=== PATIENT | male | born 1965 | race African-American/Black ===

== ENCOUNTER 2016-06-25 12:46 | Inpatient (IN) | payer OTHER ==
[2016-06-25 16:34] VITALS: BMI 33.9
--- NOTE | 2016-06-25 16:46 | HP ---
CIWA Score - CIWA Score Nausea/Vomitin-Mild Nausea/No Vomiting Muscle Tremors: 3 Anxiety: 4-Mod. Anxious/Guarded Agitation: 4-Moderately Restless Paroxysmal Sweats: 1-Minimal Palms Moist Orientation: 1-Uncertain about Date Tacttile Disturbances: 0-None Auditory Disturbances: 3-Moderate Harsh/Frighten Visual Disturbances: 0-None Headache: 0-None Present CIWA-Ar Total Score: 17 Admission ROS S - HPI Chief Complaint: withdrawal sx Allergies/Adverse Reactions: Allergies Allergy/AdvReac Type Severity Reaction Status Date / Time No Known Allergies Allergy Verified 06/25/16 16:37 History of Present Illness: 51 years old male with long history of alcohol, cocaine, nicotine dependence, chronic pancretitis and schizophrenia, is admitted to detox Exam Limitations: No Limitations - Ebola screening Have you traveled outside of the country in the last 21 days: No Have you had contact with anyone from an Ebola affected area: No Have you been sick,other than usual withdrawal symptoms: No Do you have a fever: No - Review of Systems Constitutional: Chills, Changes in sleep, Weight Stable EENT: reports: No Symptoms Reported, Dental Problems (denture) Respiratory: reports: No Symptoms reported Cardiac: reports: No Symptoms Reported GI: reports: Constipated, Nausea, Poor Fluid Intake, Abdominal cramping : reports: No Symptoms Reported Musculoskeletal: reports: No Symptoms Reported Integumentary: reports: No Symptoms Reported Neuro: reports: Tremors Endocrine: reports: No Symptoms Reported Hematology: reports: No Symptoms Reported Psychiatric: reports: Judgement Intact, Depressed Other Systems: Reviewed and Negative Patient History - Patient Medical History Hx Anemia: No Hx Asthma: Yes Hx Cancer: No Hx Cardiac Disorders: No Hx Congestive Heart Failure: No Hx Hypertension: Yes Hx Hypercholesterolemia: Yes Hx Pacemaker: No HX Cerebrovascular Accident: No Hx Seizures: No Hx Dementia: No Hx Diabetes: No Hx Gastrointestinal Disorders: No Hx Liver Disease: No Hx Genitourinary Disorders: No Hx Sexually Transmitted Disorders: No Hx Renal Disease (ESRD): No Hx Thyroid Disease: No Hx Human Immunodeficiency Virus (HIV): No Hx Hepatitis C: No Hx Depression: No Hx Suicide Attempt: No Hx Bipolar Disorder: No Hx Schizophrenia: Yes (prolixin im q2w, next 06/23/16) - Patient Surgical History Past Surgical History: No - PPD History Previous Implant?: Yes Documented Results: Positive w/o proof Implanted On Prior [facility] Admission?: No PPD to be Administered?: No - Smoking Cessation Smoking history: Current every day smoker Have you smoked in the past 12 months: Yes Aproximately how many cigarettes per day: 4 Cigars Per Day: 0 Hx Chewing Tobacco Use: No Initiated information on smoking cessation: Yes 'Breaking Loose' booklet given: 06/25/16 - Substance & Tx. History Hx Alcohol Use: Yes Hx Substance Use: Yes Substance Use Type: Alcohol, Cocaine Hx Substance Use Treatment: Yes - Substances Abused alcohol Route: Oral Frequency: Daily Amount used: 16ozx6 pack beer Age of first use: 18 Date of Last Use: 06/24/16 Alprazolam (Xanax) Route: Oral Frequency: Daily Amount used: 16ozx6 pack beer Age of first use: 18 Date of Last Use: 06/24/16 Family Disease History - Family Disease History Family Disease History: Other: Father Admission Physical Exam [facility] - Vital Signs Vital Signs: Vital Signs - 24 hr 06/25/16 16:32 Temperature 98.0 F Pulse Rate 110 H Respiratory 20 Rate Blood Pressure 143/80 - Physical General Appearance: Yes: Nourished, Appropriately Dressed, Mild Distress, Tremorous, Irritable, Sweating, Anxious HEENTM: Yes: Hearing grossly Normal, Normal ENT Inspection, Normocephalic, Normal Voice Respiratory: Yes: Chest Non-Tender, Lungs Clear, Normal Breath Sounds, No Respiratory Distress, No Accessory Muscle Use Neck: Yes: Supple, Trachea in good position Breast: Yes: Breasts Symetrical Cardiology: Yes: Regular Rhythm, S1, S2, Tachycardia Abdominal: Yes: Non Tender, Soft Genitourinary: Yes: Within Normal Limits Back: Yes: Normal Inspection Musculoskeletal: Yes: full range of Motion, Gait Steady Extremities: Yes: Normal Inspection, Normal Range of Motion, Non-Tender, Tremors Neurological: Yes: Alert, Motor Strength 5/5, Normal Response, Depressed Affect Integumentary: Yes: Warm, Moist Lymphatic: Yes: Within Normal Limits - Diagnostic (1) Alcohol dependence with uncomplicated withdrawal Current Visit: Yes Status: Acute (2) Cocaine dependence, uncomplicated Current Visit: Yes Status: Chronic (3) Positive PPD, treated Current Visit: Yes Status: Resolved (4) Hypertension Current Visit: Yes Status: Acute Qualifiers: Hypertension type: essential hypertension Qualified Code(s): I10 - Essential (primary) hypertension (5) Hyperlipidemia Current Visit: Yes Status: Chronic Qualifiers: Hyperlipidemia type: pure hypercholesterolemia Qualified Code(s): E78.0 - Pure hypercholesterolemia (6) Asthma Current Visit: Yes Status: Acute Qualifiers: Asthma severity: mild intermittent Asthma complication type: with status asthmaticus Qualified Code(s): J45.22 - Mild intermittent asthma with status asthmaticus (7) Schizophrenia simplex Current Visit: Yes Status: Suspected Cleared for Admission [facility] - Detox or Rehab S Level of Care: Medically Managed Detox Regimen/Protocol: Librium S Breath Alcohol Content Breath Alcohol Content: 0 Urine Drug Screen - Results Drug Screen Negative: No Urine Drug Screen Results: GOPI-Cocaine
[2016-06-25] MEDS ORDERED: MAGNESIUM CITRATE 300 ML BOTTLE PO PRN (16:53)
[2016-06-25] MEDS ORDERED: ACETAMINOPHEN 325 MG TABLET (FP) PO PRN (16:53)
[2016-06-25] MEDS ORDERED: MAG HYDROX/AL HYDROX/SIMETH 30 ML UNIT-DOSE CUP PO PRN (16:53)
[2016-06-25] MEDS ORDERED: chlordiazePOXIDE HCL 25 MG CAPSULE PO PRN (16:53)
[2016-06-25] MEDS ORDERED: hydrOXYzine PAMOATE 50 MG CAPSULE (FP) PO PRN (16:53)
[2016-06-25] MEDS ORDERED: LOPERAMIDE HCL 2 MG CAPSULE PO PRN (16:53)
[2016-06-25] MEDS ORDERED: MENTHOL/PHENOL 1 EACH UD MM PRN (16:53)
[2016-06-25] MEDS ORDERED: P-EPHED 60MG/TRIPROLIDI 2.5MG TABLET PO PRN (16:53)
[2016-06-25] MEDS ORDERED: NICOTINE POLACRILEX 2 MG GUM BC PRN (16:53)
[2016-06-25] MEDS ORDERED: MAGNESIUM HYDROX 2400MG/30ML ORAL SUSPENSION 30 ML CUP PO PRN (16:53)
[2016-06-25] MEDS ORDERED: guaiFENesin/D-METHORPHAN HB 10 ML UNIT-DOSE CUPS PO PRN (16:53)
[2016-06-25] MEDS ORDERED: ALBUTEROL SO4 6.7 GM HFA INHALER IH PRN (17:02)
[2016-06-25] MEDS ORDERED: ALBUTEROL SO4 2.5/IPRATROPIUM 0.5 INH SOL 3 ML VIAL.NEB. NEB PRN (17:03)
[2016-06-25] MEDS: ATORVASTATIN CA 20 MG TABLET (FP) PO SCH (22:39)
[2016-06-25] MEDS: chlordiazePOXIDE HCL 25 MG CAPSULE PO SCH (22:39)
[2016-06-25] MEDS: THIAMINE HCL 100 MG TABLET (FP) PO SCH (22:39)
[2016-06-25] MEDS: PROPRANOLOL HCL 20 MG TABLET PO SCH (22:40)
[2016-06-25] MEDS: diphenhydrAMINE HCL 50 MG CAPSULE PO PRN (22:40)
[2016-06-26] MEDS: chlordiazePOXIDE HCL 25 MG CAPSULE PO SCH ×4 (05:43→22:31)
[2016-06-26] MEDS: PRENATAL VITAMINS W/ FOLIC ACID TABLET (FP) PO SCH (10:43)
[2016-06-26] MEDS: PROPRANOLOL HCL 20 MG TABLET PO SCH ×2 (10:43→22:32)
[2016-06-26] MEDS: ASPIRIN 81 MG CHEWABLE TABLETS PO SCH (10:43)
[2016-06-26] MEDS: NICOTINE 14 MG/24 HOURS TOPICAL PATCH TD SCH (10:44)
--- NOTE | 2016-06-26 11:05 | CONSULT ---
[facility] Psychiatric Consult - Data Date of interview: 06/26/16 Admission source: [facility] Identifying data: Admission to [facility] [place] for this 51 y/o AA male seeking detox treatment on for alcohol,cocaine (crack) and benzodiazepine (xanax) dependence.Patient is single without children,homeless,unemployed and supported on SSI benefits. Substance Abuse History: - Smoking Cessation. Smoking history: Current every day smoker. Have you smoked in the past 12 months: Yes. Aproximately how many cigarettes per day: 4. Cigars Per Day: 0. Hx Chewing Tobacco Use: No. Initiated information on smoking cessation: Yes. 'Breaking Loose' booklet given : 06/25/16. - Substance & Tx. History. Hx Alcohol Use: Yes. Hx Substance Use : Yes. Substance Use Type: Alcohol, Cocaine. Hx Substance Use Treatment: Yes. - Substances Abused. alcohol. Route: Oral. Frequency: Daily. Amount used: 16ozx6 pack beer. Age of first use: 18. Date of Last Use: 06/24/16. Alprazolam (Xanax). Route: Oral. Frequency: Daily. Amount used: 16ozx6 pack beer. Age of first use: 18. Date of Last Use: 06/24/16. Confirmed by patient in this interview. Medical History: Bronchial asthma and hypertension. Psychiatric History: Patient is a vague,irritable and evasive historian." I have no idea about the names of my medications." He reports history of multiple psychiatric hospitalizations.Diagnosed with paranoid schizophrenia.Mr Marshall denies history of suicide attempts.Review of pharmacy claims shows filled scripts for propanolol,citalopram and cogentin.Reconciliation list indicates prolixin decanoate 25 mg im Q 2 weeks (next dose on 06/24/16).Was it dispensed or not ?. Patient is unable to provide accurate information.He states that he gets psychiatric OPD services at the [facility] mental health clinic. Physical/Sexual Abuse/Trauma History: Patient denies. Additional Comment: Urine Drug Screen Results: GOPI-Cocaine.Noted. Mental Status Exam - Mental Status Exam Alert and Oriented to: Time, Place, Person Cognitive Function: Good Patient Appearance: Well Groomed Mood: Hostile, Irritable Affect: Mood Congruent Patient Behavior: Uncooperative Speech Pattern: Clear (but non-spontaneous) Voice Loudness: Normal Thought Process: Goal Oriented Thought Disorder: Bizarre Hallucinations: Denies Suicidal Ideation: Denies Homicidal Ideation: Denies Insight/Judgement: Poor Sleep: Well Appetite: Good Muscle strength/Tone: Normal Gait/Station: Normal Psychiatric Findings - Problem List (Alexander 1, 2,3) (1) Alcohol dependence with uncomplicated withdrawal Current Visit: Yes Status: Acute (2) Cocaine dependence, uncomplicated Current Visit: Yes Status: Acute (3) Nicotine dependence Current Visit: Yes Status: Acute (4) Schizophrenia Current Visit: Yes Status: Chronic (5) Asthma Current Visit: Yes Status: Chronic Qualifiers: Asthma severity: mild intermittent Asthma complication type: with status asthmaticus Qualified Code(s): J45.22 - Mild intermittent asthma with status asthmaticus (6) Hypertension Current Visit: Yes Status: Chronic Qualifiers: Hypertension type: essential hypertension Qualified Code(s): I10 - Essential (primary) hypertension (7) Hyperlipidemia Current Visit: Yes Status: Chronic Qualifiers: Hyperlipidemia type: pure hypercholesterolemia Qualified Code(s): E78.0 - Pure hypercholesterolemia - Initial Treatment Plan Initial Treatment Plan: Psychoeducation.Detoxification.Medications : cogentin 1 mg po bid + citalopram 10 mg po daily + prolixin 5 mg po hs.Side effects/ benefits of each drug are discussed with the patient.He agrees with this plan.Observation.Doses are based on data from pharmacy claims of 06/10/16 and 06/24 @ [facility]).
[2016-06-26 11:20] LABS: ALBUMIN 3.9 g/dl (3.4-5.0); ANION GAP 9 (8-16); CALCIUM 8.7 mg/dL (8.5-10.1); CO2 29 mmol/L (21-32); CREATININE 1.2 mg/dL (0.7-1.3); GLUCOSE,RANDOM 78 mg/dL (74-106); MCH 27.8 pg (25.7-33.7); MCHC 32.5 g/dl (32.0-35.9); MEAN CELL VOLUME 85.6 fl (80-96); PLATELET COUNT 268 K/MM3 (134-434); RDW 14.8 % (11.9-15.9); SGOT/AST 31 U/L (15-37); SGPT/ALT 39 U/L (12-78); WHITE BLOOD COUNT 6.9 K/mm3 (4.0-10.0)
[2016-06-26 11:21] LABS: ALK PHOS 96 U/L (45-117); BILIRUBIN,TOTAL 0.6 mg/dL (0.2-1.0); TOT PROT 6.9 g/dl (6.4-8.2)
--- NOTE | 2016-06-26 13:18 | PN ---
S CIWA - CIWA Score Nausea/Vomitin-No Nausea/No Vomiting Muscle Tremors: 4-Moderate,w/Arms Extend Anxiety: 3 Agitation: 4-Moderately Restless Paroxysmal Sweats: 3 Orientation: 0-Oriented Tacttile Disturbances: 0-None Auditory Disturbances: 0-None Visual Disturbances: 0-None Headache: 0-None Present CIWA-Ar Total Score: 14 BHS Progress Note (SOAP) Subjective: Anxiety,tremors,sweating,interrupted sleep,restless Objective: 06/26/16 13:18 Vital Signs - 8 hr 06/26/16 06/26/16 06:35 10:41 Temperature 97.1 F L 97.0 F L Pulse Rate 79 96 H Respiratory 16 20 Rate Blood Pressure 139/97 131/89 Laboratory Tests 06/26/16 06/26/16 06:15 06:15 WBC 6.9 RBC 5.01 Hgb 13.9 Hct 42.9 MCV 85.6 MCHC 32.5 RDW 14.8 Plt Count 268 MPV 8.0 Sodium 140 Potassium 4.4 Chloride 102 Carbon Dioxide 29 Anion Gap 9 BUN 17 Creatinine 1.2 Creat Clearance w eGFR > 60 Random Glucose 78 Calcium 8.7 Total Bilirubin 0.6 AST 31 ALT 39 Alkaline Phosphatase 96 Total Protein 6.9 Albumin 3.9 labs noted Assessment: 06/26/16 13:19 withdrawal sx. Plan: continue detox
[2016-06-26] MEDS: CITALOPRAM HYDROBROMIDE 10 MG TABLET (FP) PO SCH (14:19)
[2016-06-26 20:22] LABS: URINE APPEARANCE CLEAR; URINE BILIRUBIN NEGATIVE (NEGATIVE); URINE BLOOD NEGATIVE (NEGATIVE); URINE COLOR LTYELLOW; URINE GLUCOSE (UA) NEGATIVE (NEGATIVE); URINE KETONE NEGATIVE (NEGATIVE); URINE LEUK ESTERASE NEGATIVE (NEGATIVE); URINE NITRITE NEGATIVE (NEGATIVE); URINE PROTEIN NEGATIVE (NEGATIVE); URINE UROBILINOGEN NEGATIVE E.U./dl (0.2-1.0)
[2016-06-26] MEDS: THIAMINE HCL 100 MG TABLET (FP) PO SCH (22:31)
[2016-06-26] MEDS: BENZTROPINE MESYLATE 1 MG TABLET (FP) PO SCH (22:32)
[2016-06-26] MEDS: diphenhydrAMINE HCL 50 MG CAPSULE PO PRN (22:32)
[2016-06-26] MEDS: ATORVASTATIN CA 20 MG TABLET (FP) PO SCH (22:32)
[2016-06-27] MEDS: chlordiazePOXIDE HCL 25 MG CAPSULE PO SCH ×3 (05:47→17:40)
[2016-06-27] MEDS: NICOTINE 14 MG/24 HOURS TOPICAL PATCH TD SCH (10:34)
[2016-06-27] MEDS: PROPRANOLOL HCL 20 MG TABLET PO SCH ×2 (10:34→22:42)
[2016-06-27] MEDS: CITALOPRAM HYDROBROMIDE 10 MG TABLET (FP) PO SCH (10:34)
[2016-06-27] MEDS: BENZTROPINE MESYLATE 1 MG TABLET (FP) PO SCH ×2 (10:34→22:42)
[2016-06-27] MEDS: ASPIRIN 81 MG CHEWABLE TABLETS PO SCH (10:34)
[2016-06-27] MEDS: PRENATAL VITAMINS W/ FOLIC ACID TABLET (FP) PO SCH (10:34)
--- NOTE | 2016-06-27 15:18 | PN ---
S CIWA - CIWA Score Nausea/Vomitin Muscle Tremors: 3 Anxiety: 3 Agitation: 3 Paroxysmal Sweats: No Perspiration Orientation: 0-Oriented Tacttile Disturbances: 0-None Auditory Disturbances: 0-None Visual Disturbances: 0-None Headache: 2-Mild CIWA-Ar Total Score: 14 BHS Progress Note (SOAP) Subjective: Anxious, nausea, sweating, tremor Objective: 06/27/16 15:15 Last Vital Signs Temp Pulse Resp BP Pulse Ox 98.3 F 85 20 119/89 06/27/16 13:58 06/27/16 13:58 06/27/16 13:58 06/27/16 13:58 Laboratory Tests 06/26/16 06/26/16 06/26/16 06:15 06:15 06:15 WBC 6.9 RBC 5.01 Hgb 13.9 Hct 42.9 MCV 85.6 MCHC 32.5 RDW 14.8 Plt Count 268 MPV 8.0 Sodium 140 Potassium 4.4 Chloride 102 Carbon Dioxide 29 Anion Gap 9 BUN 17 Creatinine 1.2 Creat Clearance w eGFR > 60 Random Glucose 78 Calcium 8.7 Total Bilirubin 0.6 AST 31 ALT 39 Alkaline Phosphatase 96 Total Protein 6.9 Albumin 3.9 Urine Color Urine Appearance Urine pH Ur Specific [place] Urine Protein Urine Glucose (UA) Urine Ketones Urine Blood Urine Nitrite Urine Bilirubin Urine Urobilinogen Ur Leukocyte Esterase RPR Titer Nonreactive 06/26/16 20:17 WBC RBC Hgb Hct MCV MCHC RDW Plt Count MPV Sodium Potassium Chloride Carbon Dioxide Anion Gap BUN Creatinine Creat Clearance w eGFR Random Glucose Calcium Total Bilirubin AST ALT Alkaline Phosphatase Total Protein Albumin Urine Color Ltyellow Urine Appearance Clear Urine pH 6.0 Ur Specific [place] 1.013 Urine Protein Negative Urine Glucose (UA) Negative Urine Ketones Negative Urine Blood Negative Urine Nitrite Negative Urine Bilirubin Negative Urine Urobilinogen Negative Ur Leukocyte Esterase Negative RPR Titer Labs noted Assessment: 06/27/16 15:16 Withdrawal symptoms Plan: Continue detox
[2016-06-27] MEDS: THIAMINE HCL 100 MG TABLET (FP) PO SCH (22:42)
[2016-06-27] MEDS: chlordiazePOXIDE 5 MG CAPSULE PO SCH (22:42)
[2016-06-27] MEDS: ATORVASTATIN CA 20 MG TABLET (FP) PO SCH (22:42)
[2016-06-27] MEDS: diphenhydrAMINE HCL 50 MG CAPSULE PO PRN (22:43)
--- NOTE | 2016-06-27 22:56 | EKG ---
Test Reason : Blood Pressure : / mmHG Vent. Rate : 103 BPM Atrial Rate : 103 BPM P-R Int : 150 ms QRS Dur : 082 ms QT Int : 368 ms P-R-T Axes : 062 064 057 degrees QTc Int : 482 ms SINUS TACHYCARDIA PROLONGED QT NO PREVIOUS ECGS AVAILABLE Confirmed by LEELEE DODD MD ([id number]) on 06/27/2016 10:56:16 PM Referred By: Confirmed By:LEELEE DODD MD
[2016-06-28] MEDS: chlordiazePOXIDE 5 MG CAPSULE PO SCH ×3 (05:38→17:13)
[2016-06-28] MEDS: CITALOPRAM HYDROBROMIDE 10 MG TABLET (FP) PO SCH (10:32)
[2016-06-28] MEDS: PRENATAL VITAMINS W/ FOLIC ACID TABLET (FP) PO SCH (10:32)
[2016-06-28] MEDS: BENZTROPINE MESYLATE 1 MG TABLET (FP) PO SCH ×2 (10:32→22:39)
[2016-06-28] MEDS: PROPRANOLOL HCL 20 MG TABLET PO SCH ×2 (10:32→22:40)
[2016-06-28] MEDS: NICOTINE 14 MG/24 HOURS TOPICAL PATCH TD SCH (10:32)
[2016-06-28] MEDS: ASPIRIN 81 MG CHEWABLE TABLETS PO SCH (10:32)
--- NOTE | 2016-06-28 13:14 | PN ---
BHS Progress Note (SOAP) Subjective: Sweating,interrupted sleep,restless Objective: 06/28/16 13:13 Vital Signs - 8 hr 06/28/16 06/28/16 06:44 09:30 Temperature 96.9 F L 98.7 F Pulse Rate 87 98 H Respiratory 18 20 Rate Blood Pressure 128/95 116/83 Laboratory Tests 06/26/16 06/26/16 06/26/16 06:15 06:15 06:15 WBC 6.9 RBC 5.01 Hgb 13.9 Hct 42.9 MCV 85.6 MCHC 32.5 RDW 14.8 Plt Count 268 MPV 8.0 Sodium 140 Potassium 4.4 Chloride 102 Carbon Dioxide 29 Anion Gap 9 BUN 17 Creatinine 1.2 Creat Clearance w eGFR > 60 Random Glucose 78 Calcium 8.7 Total Bilirubin 0.6 AST 31 ALT 39 Alkaline Phosphatase 96 Total Protein 6.9 Albumin 3.9 Urine Color Urine Appearance Urine pH Ur Specific [place] Urine Protein Urine Glucose (UA) Urine Ketones Urine Blood Urine Nitrite Urine Bilirubin Urine Urobilinogen Ur Leukocyte Esterase RPR Titer Nonreactive 06/26/16 20:17 WBC RBC Hgb Hct MCV MCHC RDW Plt Count MPV Sodium Potassium Chloride Carbon Dioxide Anion Gap BUN Creatinine Creat Clearance w eGFR Random Glucose Calcium Total Bilirubin AST ALT Alkaline Phosphatase Total Protein Albumin Urine Color Ltyellow Urine Appearance Clear Urine pH 6.0 Ur Specific [place] 1.013 Urine Protein Negative Urine Glucose (UA) Negative Urine Ketones Negative Urine Blood Negative Urine Nitrite Negative Urine Bilirubin Negative Urine Urobilinogen Negative Ur Leukocyte Esterase Negative RPR Titer labs noted Assessment: 06/28/16 13:14 Withdrawal sx. Plan: Continue detox
[2016-06-28] MEDS: THIAMINE HCL 100 MG TABLET (FP) PO SCH (22:39)
[2016-06-28] MEDS: chlordiazePOXIDE HCL 10 MG CAPSULE PO SCH (22:39)
[2016-06-28] MEDS: ATORVASTATIN CA 20 MG TABLET (FP) PO SCH (22:39)
[2016-06-29] MEDS: chlordiazePOXIDE HCL 10 MG CAPSULE PO SCH ×3 (05:31→16:53)
[2016-06-29] MEDS: PRENATAL VITAMINS W/ FOLIC ACID TABLET (FP) PO SCH (10:35)
[2016-06-29] MEDS: CITALOPRAM HYDROBROMIDE 10 MG TABLET (FP) PO SCH (10:36)
[2016-06-29] MEDS: PROPRANOLOL HCL 20 MG TABLET PO SCH ×2 (10:36→22:34)
[2016-06-29] MEDS: NICOTINE 14 MG/24 HOURS TOPICAL PATCH TD SCH (10:36)
[2016-06-29] MEDS: BACITRACIN 0.9 GM PACKET TP SCH ×4 (10:36→22:34)
[2016-06-29] MEDS: ASPIRIN 81 MG CHEWABLE TABLETS PO SCH (10:36)
[2016-06-29] MEDS: BENZTROPINE MESYLATE 1 MG TABLET (FP) PO SCH ×2 (10:36→22:34)
--- NOTE | 2016-06-29 11:04 | PN ---
BHS Progress Note (SOAP) Subjective: sweating,interrupted sleep,c/o of sore on lower lip. Objective: 06/29/16 11:02 Vital Signs - 8 hr 06/29/16 06/29/16 06/29/16 03:29 05:57 09:50 Temperature 97.6 F 98.6 F Pulse Rate 90 97 H Respiratory 18 18 18 Rate Blood Pressure 114/88 131/87 Laboratory Last Values WBC 6.9 K/mm3 (4.0-10.0) 06/26/16 06:15 RBC 5.01 M/mm3 (4.00-5.60) 06/26/16 06:15 Hgb 13.9 GM/dL (11.7-16.9) 06/26/16 06:15 Hct 42.9 % (35.4-49) 06/26/16 06:15 MCV 85.6 fl (80-96) 06/26/16 06:15 MCHC 32.5 g/dl (32.0-35.9) 06/26/16 06:15 RDW 14.8 % (11.9-15.9) 06/26/16 06:15 Plt Count 268 K/MM3 (134-434) 06/26/16 06:15 MPV 8.0 fl (7.5-11.1) 06/26/16 06:15 Sodium 140 mmol/L (136-145) 06/26/16 06:15 Potassium 4.4 mmol/L (3.5-5.1) 06/26/16 06:15 Chloride 102 mmol/L (98-107) 06/26/16 06:15 Carbon Dioxide 29 mmol/L (21-32) 06/26/16 06:15 Anion Gap 9 (8-16) 06/26/16 06:15 BUN 17 mg/dL (7-18) 06/26/16 06:15 Creatinine 1.2 mg/dL (0.7-1.3) 06/26/16 06:15 Creat Clearance w eGFR > 60 (>60) 06/26/16 06:15 Random Glucose 78 mg/dL (74-106) 06/26/16 06:15 Calcium 8.7 mg/dL (8.5-10.1) 06/26/16 06:15 Total Bilirubin 0.6 mg/dL (0.2-1.0) 06/26/16 06:15 AST 31 U/L (15-37) 06/26/16 06:15 ALT 39 U/L (12-78) 06/26/16 06:15 Alkaline Phosphatase 96 U/L (45-117) 06/26/16 06:15 Total Protein 6.9 g/dl (6.4-8.2) 06/26/16 06:15 Albumin 3.9 g/dl (3.4-5.0) 06/26/16 06:15 Urine Color Ltyellow 06/26/16 20:17 Urine Appearance Clear 06/26/16 20:17 Urine pH 6.0 (5.0-8.0) 06/26/16 20:17 Ur Specific [place] 1.013 (1.001-1.035) 06/26/16 20:17 Urine Protein Negative (NEGATIVE) 06/26/16 20:17 Urine Glucose (UA) Negative (NEGATIVE) 06/26/16 20:17 Urine Ketones Negative (NEGATIVE) 06/26/16 20:17 Urine Blood Negative (NEGATIVE) 06/26/16 20:17 Urine Nitrite Negative (NEGATIVE) 06/26/16 20:17 Urine Bilirubin Negative (NEGATIVE) 06/26/16 20:17 Urine Urobilinogen Negative E.U./dl (0.2-1.0) 06/26/16 20:17 Ur Leukocyte Esterase Negative (NEGATIVE) 06/26/16 20:17 RPR Titer Nonreactive (NONREACTIVE) 06/26/16 06:15 Hepatitis C Antibody <0.1 s/co ratio (0.0-0.9) 06/26/16 09:30 labs noted Assessment: 06/29/16 11:03 withdrawal sx. Plan: Continue detox
[2016-06-29 22:18] VITALS: BP 120/85
[2016-06-29] MEDS: diphenhydrAMINE HCL 50 MG CAPSULE PO PRN (22:34)
[2016-06-29] MEDS: ATORVASTATIN CA 20 MG TABLET (FP) PO SCH (22:34)
[2016-06-29] MEDS: THIAMINE HCL 100 MG TABLET (FP) PO SCH (22:34)
[2016-06-30 06:13] VITALS: PULSE 84; TEMP 96
--- NOTE | 2016-06-30 16:18 | DS ---
[facility] Detox Discharge Summary Admission Date: 06/25/16 Discharge Date: 06/30/16 - History Present History: Alcohol Dependence, Cocaine Dependence Pertinent Past History: Asthma Hyperlipidemia HTN - Physical Exam Results Vital Signs: Vital Signs Temperature 96.0 F L 06/30/16 06:13 Pulse Rate 84 06/30/16 06:13 Respiratory Rate 18 06/30/16 06:13 Blood Pressure 120/85 06/30/16 06:13 O2 Sat by Pulse Oximetry (%) Pertinent Admission Physical Exam Findings: Withdrawal sx. Laboratory Last Values WBC 6.9 K/mm3 (4.0-10.0) 06/26/16 06:15 RBC 5.01 M/mm3 (4.00-5.60) 06/26/16 06:15 Hgb 13.9 GM/dL (11.7-16.9) 06/26/16 06:15 Hct 42.9 % (35.4-49) 06/26/16 06:15 MCV 85.6 fl (80-96) 06/26/16 06:15 MCHC 32.5 g/dl (32.0-35.9) 06/26/16 06:15 RDW 14.8 % (11.9-15.9) 06/26/16 06:15 Plt Count 268 K/MM3 (134-434) 06/26/16 06:15 MPV 8.0 fl (7.5-11.1) 06/26/16 06:15 Sodium 140 mmol/L (136-145) 06/26/16 06:15 Potassium 4.4 mmol/L (3.5-5.1) 06/26/16 06:15 Chloride 102 mmol/L (98-107) 06/26/16 06:15 Carbon Dioxide 29 mmol/L (21-32) 06/26/16 06:15 Anion Gap 9 (8-16) 06/26/16 06:15 BUN 17 mg/dL (7-18) 06/26/16 06:15 Creatinine 1.2 mg/dL (0.7-1.3) 06/26/16 06:15 Creat Clearance w eGFR > 60 (>60) 06/26/16 06:15 Random Glucose 78 mg/dL (74-106) 06/26/16 06:15 Calcium 8.7 mg/dL (8.5-10.1) 06/26/16 06:15 Total Bilirubin 0.6 mg/dL (0.2-1.0) 06/26/16 06:15 AST 31 U/L (15-37) 06/26/16 06:15 ALT 39 U/L (12-78) 06/26/16 06:15 Alkaline Phosphatase 96 U/L (45-117) 06/26/16 06:15 Total Protein 6.9 g/dl (6.4-8.2) 06/26/16 06:15 Albumin 3.9 g/dl (3.4-5.0) 06/26/16 06:15 Urine Color Ltyellow 06/26/16 20:17 Urine Appearance Clear 06/26/16 20:17 Urine pH 6.0 (5.0-8.0) 06/26/16 20:17 Ur Specific [place] 1.013 (1.001-1.035) 06/26/16 20:17 Urine Protein Negative (NEGATIVE) 06/26/16 20:17 Urine Glucose (UA) Negative (NEGATIVE) 06/26/16 20:17 Urine Ketones Negative (NEGATIVE) 06/26/16 20:17 Urine Blood Negative (NEGATIVE) 06/26/16 20:17 Urine Nitrite Negative (NEGATIVE) 06/26/16 20:17 Urine Bilirubin Negative (NEGATIVE) 06/26/16 20:17 Urine Urobilinogen Negative E.U./dl (0.2-1.0) 06/26/16 20:17 Ur Leukocyte Esterase Negative (NEGATIVE) 06/26/16 20:17 RPR Titer Nonreactive (NONREACTIVE) 06/26/16 06:15 Hepatitis C Antibody <0.1 s/co ratio (0.0-0.9) 06/26/16 09:30 labs noted - Treatment Hospital Course: Detox Protocol Followed, Detoxed Safely, Responded well, Discharged Condition Good, Rehab Referral Accepted Patient has Accepted a Rehab Referral to: [facility] out-pt[facility] treatment program - Medication Discharge Medications: Ambulatory Orders Aspirin [ASA -] 81 mg PO DAILY 06/25/16 Atorvastatin Calcium 40 mg PO HS 06/25/16 Benztropine Mesylate [Cogentin -] 1 mg PO BID 06/25/16 Citalopram Hydrobromide [Celexa -] 30 mg PO DAILY 06/25/16 Fluphenazine HCl Injection [Prolixin Injection -] 25 mg IM ONCE 06/25/16 Ibuprofen 800 mg PO BID PRN 06/25/16 Multivitamin [Poly-Vitamin] 1 each PO DAILY 06/25/16 Propranolol HCl [Inderal] 20 mg PO BID 06/25/16 Thiamine Mononitrate [Vitamin B-1] 100 mg PO DAILY 06/25/16 Citalopram Hydrobromide [Celexa -] 10 mg PO DAILY #30 tablet 06/30/16 Fluphenazine HCl [Prolixin -] 10 mg PO HS #60 tablet 06/30/16 - Diagnosis (1) Alcohol dependence with uncomplicated withdrawal Status: Acute (2) Cocaine dependence, uncomplicated Status: Acute (3) Nicotine dependence Status: Acute Qualifiers: Nicotine product type: cigarettes Substance use status: uncomplicated Qualified Code(s): F17.210 - Nicotine dependence, cigarettes, uncomplicated (4) Asthma Status: Chronic Qualifiers: Asthma severity: mild intermittent Asthma complication type: with status asthmaticus Qualified Code(s): J45.22 - Mild intermittent asthma with status asthmaticus (5) Hyperlipidemia Status: Chronic Qualifiers: Hyperlipidemia type: pure hypercholesterolemia Qualified Code(s): E78.0 - Pure hypercholesterolemia (6) Hypertension Status: Chronic Qualifiers: Hypertension type: essential hypertension Qualified Code(s): I10 - Essential (primary) hypertension (7) Schizophrenia Status: Chronic - AMA Did Patient Leave Against Medical Advice: No
== END 2016-06-30 10:18 | disposition home or self-care (01) | DRG 897 ==
LOC: YASAS 12:46 → Y3N 17:47
PROVIDERS: ADMIT Internal Medicine; ATTEND Internal Medicine
PROC: HZ2ZZZZ Detoxification Services for Substance Abuse Treatment (ICD-10-PCS; principal; 2016-06-30)
DX: F19.230 Other psychoactive substance dependence with withdrawal, uncomplicated (principal); F14.20 Cocaine dependence, uncomplicated; J45.22 Mild intermittent asthma with status asthmaticus; K86.1 Other chronic pancreatitis; F10.230 Alcohol dependence with withdrawal, uncomplicated; F17.210 Nicotine dependence, cigarettes, uncomplicated; F20.9 Schizophrenia, unspecified; I10 Essential (primary) hypertension; R76.11 Nonspecific reaction to tuberculin skin test without active tuberculosis
CPT/HCPCS: 36415; 71020-TC; 80053; 81003; 85027; 86593; 93005; 93010